=== PATIENT | female | born 1950 | race Caucasian/White ===

== ENCOUNTER 2019-01-25 16:04 | Inpatient (IN) ==
[2019-01-25] MEDS ORDERED: NS 1,000 ML IV ONE ×4 (16:29→17:42)
[2019-01-25] MEDS ORDERED: DUONEB (A & A) INH ONE (16:29)
--- NOTE | 2019-01-25 16:46 | Diag Imaging Result Doc PS360 ---
EXAM: CT HEAD W/O CONTRAST 01/25/2019 HISTORY: AMS TECHNIQUE: This exam was performed using automated exposure control, adjustment of mA or kV according to patient size, and/or use of iterative reconstruction technique. COMMENT: There are calcifications in the vertebral and internal carotid arteries. There is hypodensity in the left occipital cortex and subcortical white matter. There is periventricular white matter lucency in the frontal lobes bilaterally and lucency present in the anterior portion of the external capsule on the left. There is a small lacune in the right caudate nucleus. There is no evidence of bleed mass effect or abnormal extra-axial fluid collection. The calvarium is intact. The visualized paranasal sinuses are clear. There are no previous studies. IMPRESSION: Chronic ischemic microvascular changes. The possibility of a subacute infarction in the left occipital lobe cannot be excluded. Electronically signed by Alberto Gar 01/25/2019 4:44 PM
--- NOTE | 2019-01-25 16:47 | Diag Imaging Result Doc PS360 ---
EXAM: CHEST-PORTABLE 01/25/2019 HISTORY: AMS TECHNIQUE: AP portable at 1644 COMMENT: There is some ill-defined opacity partially obscuring the left hemidiaphragm. This was not present on 11/08/2012. IMPRESSION: Left lower lobe bronchopneumonia. Electronically signed by Alberto Gar 01/25/2019 4:45 PM
[2019-01-25 17:24] LABS: ALLEN TEST NO; BE -7.7 mmoll (-3.0-3.0); BLOOD TYPE ARTERIAL; HCO3-(ACT) 18.8 mmoll (20.0-26.0); METHB 0.8 % (0.0-1.5); O2HB 92.8 % (95.0-99.0); PCO2(98.6) 29 mmHg (35-45); PO2(98.6) 67 mmHg (60-100); SAMPLE BLOOD; SAO2 97.9 % (95.0-100.0); THB 13.8 g/dL (11.5-17.4); pH(98.6) 7.36 (7.35-7.45)
[2019-01-25 17:28] LABS: MODALITY ROOM AIR
[2019-01-25] MEDS ORDERED: HUMULIN R IV ONE ×2 (17:40→18:49)
[2019-01-25] MEDS ORDERED: LEVAQUIN 750 MG/D5W 750 MG/150 ML IVPB IV ONE (17:40)
[2019-01-25] MEDS ORDERED: VANCOMYCIN 1 GM/NS 1 GM/250 ML IVPB IV ONE (17:40)
[2019-01-25 17:41] LABS: BASO# 0.03 X1000 (0.0-0.2); BASO% 0.2 % (0.0-0.8); EOS# 0.17 X1000 (0.0-0.7); EOS% 1.3 % (0.0-10.0); HEMATOCRIT 41.3 % (37.0-47.0); HEMOGLOBIN 13.9 g/dL (12.0-16.0); IMM GRAN# 0.05 X1000 (0.0-0.04); IMM GRAN% 0.4 % (0.0-0.5); LYMPH# 1.79 X1000 (1.2-3.4); LYMPH% 14.1 % (20.5-51.1); MCHC 33.7 g/dL (33-37); MONO# 0.69 X1000 (0.11-0.59); MONO% 5.4 % (1.7-9.3); MPV 10.4 FL (7.4-10.4); NEUT# 9.97 X1000 (1.4-6.5); NEUT% 78.6 % (42.2-75.2); PLT 431 X1000 (130-400); RDW 13.1 % (11.5-14.5)
--- NOTE | 2019-01-25 18:35 | PROVIDER DOCUMENTATION ---
This chart was entered by Casi Mcknight Scribe, acting as scribe for Logan Rodriguez MD. HPI-General Adult - General Chief Complaint: Altered Mental Status Stated Complaint: CANT SEE Time Seen by Provider: 01/25/19 16:12 Source: patient, family Allergies/Adverse Reactions: Patient Allergies Allergy/AdvReac Type Severity Reaction Status Date / Time acetaminophen [From Ultracet] Allergy Unknown Verified 04/15/12 20:41 azithromycin Allergy Unknown Verified 04/15/12 20:41 cephalexin monohydrate * Allergy HIVES Verified 04/15/12 20:41 [From Keflex] ketorolac tromethamine * Allergy Unknown Verified 04/15/12 20:41 [From Toradol] methylprednisolone Allergy WATERY EYES Verified 04/15/12 20:41 [From Medrol] nalbuphine HCl * Allergy ANAPHYLAXIS Verified 04/15/12 20:41 [From Nubain] Penicillins Allergy RASH Verified 04/15/12 20:41 Sulfa (Sulfonamide Allergy ITCHING Verified 04/15/12 20:41 Antibiotics) tramadol HCl * Allergy Unknown Verified 04/15/12 20:41 [From Ultracet] Home Medications: Home Medication List Medication Instructions Recorded Confirmed Last Taken Type Alprazolam [Alprazolam Xr] 2 mg PO 4XDAY PRN PRN 04/15/12 04/15/12 Unknown History Atorvastatin Calcium [Lipitor] 80 mg PO DAILY 04/15/12 04/15/12 Unknown History Carisoprodol [Soma] 350 mg PO BID 04/15/12 04/15/12 Unknown History Doxycycline [Vibramycin] 100 mg PO BID 04/15/12 04/15/12 Unknown History Esomeprazole Magnesium [Nexium] 40 mg PO DAILY 04/15/12 04/15/12 Unknown History Folic Acid 1 mg PO DAILY 04/15/12 04/15/12 Unknown History Hydrocodone/Acetaminophen [Lortab 1 each PO Q4H PRN PRN 04/15/12 04/15/12 Unknown History 10-500 Tablet] Lisinopril [Zestril] 2.5 mg PO 04/15/12 04/15/12 Unknown History Temazepam 30 mg PO DAILY 04/15/12 04/15/12 Unknown History Tolterodine L.a. [Detrol LA] 2 mg PO DAILY 04/15/12 04/15/12 Unknown History Topiramate [Topamax] 50 mg PO BID 04/15/12 04/15/12 Unknown History Warfarin [Coumadin] 10 mg PO QHS 04/15/12 04/15/12 Unknown History Clindamycin [Cleocin] 150 mg PO Q8H #42 capsule 04/18/12 Unknown Rx - History of Present Illness -Gen Adult Nature of Presenting Problems: pt is a 68 yr old female presenting with daughter. pt reports approx 1430 this afternoon she began having trouble seeing, weak, dizzy and confused. pt also admits pain all over, hx of chronic pain. pt has been incontinent today Location of Pain/Injury: reports: generalized Pain Radiation: reports: no radiation Quality of Pain: reports: aching Severity: reports: moderate Onset/Duration: reports: abrupt (1430) Timing: reports: still present Context/Activities at Onset: reports: light activity Modifying Factors: improves with: nothing Associated Symptoms: reports: dizziness, genitourinary problems, muscle aches, shortness of breath, weakness, trouble walking. denies: fever/chills Similar Symptoms Previously?: No Recently seen or treated by another doctor?: No Review of Systems - Adult - REVIEW OF SYSTEMS - ADULT Constitutional: reports: fatique. denies: chills, fever Eyes: reports: decreased vision. denies: blurred vision, double vision Ears, Nose, Mouth & Throat: denies: ear pain, sinus problem, throat pain Cardiovascular: reports: chest pain. denies: palpitations, syncope Respiratory: reports: shortness of breath (chronic). denies: cough Gastrointestinal: reports: abdominal pain. denies: diarrhea, nausea, vomiting Genitourinary: reports: incontinence. denies: dysuria, frequency Musculoskeletal: reports: muscle aches, muscle weakness Integumentary: reports: no symptoms reported Neurological: reports: dizziness/vertigo. denies: headache/migraines, numbness, slurred speech, syncope Psychiatric: reports: no symptoms reported Endocrine: reports: no symptoms reported Hematologic/Lymphatic: reports: no symptoms reported Allergic/Immunologic: reports: no symptoms reported All Other Systems: Reviewed and Negative Past History - Adult - PAST MEDICAL HISTORY-ADULT Review of Records: reports: Nursing Assessment Review, Medications Reviewed, Social history reviewed & non-contributory. Major Childhood Illnesses: reports: denies history Cardiovascular: reports: denies history Respiratory: reports: denies history Gastrointestinal: reports: denies history Obstetrical/Gynecological: reports: denies history Genitourinary: reports: denies history Musculoskeletal: reports: denies history Neurological: reports: denies history Endocrine/Immune: reports: denies history Other Conditions: reports: denies history - IMMUNIZATION STATUS Childhood Immunizations: See Nurse Assessment Flu Vaccine: See Nurse Assessment - FAMILY HISTORY Family History: reviewed, not pertinent - SOCIAL HISTORY Smoking: cigarettes Provider spent 3-5 mins advising pt. on dangers of tobacco.: Discussed manners to quit use, and f/u contacts for add'l counseling. Substance Use: denies Physical Exam-General - PHYSICAL EXAM-ADULT Initial Vital Signs Reviewed: Yes - CONSTITUTIONAL General Appearance: appears well, alert, no apparent distress, obese - EYES Eyes: PERRL/EOMI - HEAD, EARS, NOSE, MOUTH & THROAT HENMT: normocephalic/atraumatic, other (dry oral mucosa) - NECK Neck: non-tender, full range of motion, supple, normal inspection - RESPIRATORY Respiratory: chest non-tender, rhonchi (rare), increased rate, other (distant breath sounds) - CARDIOVASCULAR Cardiovascular: normal peripheral pulses, regular rate, rhythm, systolic murmur (2/6 at apex) - CHEST (BREASTS) Chest/Breast: other (small area of erythema to right breast above nipple) - GASTROINTESTINAL (ABDOMEN) Abdominal Exam: normal bowel sounds, soft, tenderness (RUQ), hernia (multiple small ventral hernias) - LYMPHATIC Lymphatic: no adenopathy - MUSCULOSKELETAL Extremity: slow capillary refill, other (LAKA-well healed stump.). negative: calf tenderness - SKIN Integumentary: normal color, normal turgor, warm/dry, other (dry urine down right leg/foot) - NEUROLOGIC Neurologic: grossly normal, no motor/sensory deficits - PSYCHIATRIC Psych/Mental Status: normal mood/affect, normal thought content, normal thought process, oriented x 3 Progress - PLAN OF CARE/RESULTS Progress/Plan/Lab Results: Vital Signs - 8 hr 01/25/19 16:06 Temperature 98.0 F Pulse Rate 96 H Respiratory Rate 18 Blood Pressure 150/78 O2 Sat by Pulse Oximetry 99 Orders Category Date Time Status Cardiac Monitoring DIRECTED Care 01/25/19 16:26 Active Finger Stick Blood Sugar (ED) DIRECTED Care 01/25/19 16:26 Active Oxygen Therapy- ED Nursing DIRECTED Care 01/25/19 16:26 Active Saline Loc NOW Care 01/25/19 16:26 Active CHEST-PORTABLE [RAD] Stat Exams 01/25/19 16:[address] HEAD W/O CONTRAST [CT] Stat Exams 01/25/19 16:27 Ordered ABG [RESP] Routine Lab 01/25/19 16:26 Ordered ALCOHOL BLOOD Stat Lab 01/25/19 16:26 Uncollected CBC WITH ELECTRONIC DIFF [HEME] Stat Lab 01/25/19 16:26 Uncollected CK PROFILE [SP CHEM] Stat Lab 01/25/19 16:26 Uncollected COMPREHENSIVE METABOLIC PANEL [CHEM] Stat Lab 01/25/19 16:26 Uncollected LACTATE, PLASMA [CHEM] Stat Lab 01/25/19 16:26 Uncollected PROTIME WITH INR [COAG] Stat Lab 01/25/19 16:26 Uncollected PTT [COAG] Stat Lab 01/25/19 16:26 Uncollected TROPONIN T Stat Lab 01/25/19 16:26 Uncollected URINALYSIS [URINALYSIS] Stat Lab 01/25/19 16:26 Uncollected URINE DRUG SCREEN Stat Lab 01/25/19 16:27 Uncollected 0.9% Sodium Chloride Inj [Ns] 1,000 ml Med 01/25/19 16:29 Active IV 999 mls/hr Albuterol 2.5MG/Ipratrop 0.5MG [Duoneb (A & A)] Med 01/25/19 16:29 Discontinued 3 ml INH NOW ONE Aerosol Treatments Routine Oth 01/25/19 16:30 Active Aerosol Treatments Stat Oth 01/25/19 16:30 Active Altered Mental Status Stat Oth 01/25/19 16:26 Ordered EKG [EKG] Stat Ther 01/25/19 16:26 Ordered Result Diagrams: 01/25/19 17:22 - REASSESSMENT Reassessment #1 Time Reassessed: 18:01 Status: improving (Given 30ml/kg bolus of NS for severe sepsis since lactate was greater than 4. Given IV levaquin and vanco for PNE, since she is allergic to cephalexin and azithtomycin. Given IV insulin for hyperglycemia. There is no acidosis. She will also need MRI work-up for possible subacute CVA on CT scan.) - XRAY 1 XRAY Study: Chest Impression: Abnormal ( EXAM: CHEST-PORTABLE 01/25/2019 HISTORY: AMS TECHNIQUE: AP portable at 1644 COMMENT: There is some ill-defined opacity partially obscuring the left hemidiaphragm. This was not present on 11/08/2012. IMPRESSION: Left lower lobe bronchopneumonia. Electronically signed by Alberto Gar 01/25/2019 4:45 PM 01/25/19 1645 Interpreting Physician: Alberto Gar MD Dictated Date/Time: 01/25/19 1644 cc: Logan Rodriguez MD; Celestina Connelly) Comparison with other Films: changes noted (11/08/12) - CT/MRI 1 CT Study: Head Impression: Abnormal (Signed EXAM: CT HEAD W/O CONTRAST 01/25/2019 HISTORY: AMS TECHNIQUE: This exam was performed using automated exposure control, adjustment of mA or kV according to patient size, and/or use of iterative reconstruction technique. COMMENT: There are calcifications in the vertebral and internal carotid arteries. There is hypodensity in the left occipital cortex and subcortical white matter. There is periventricular white matter lucency in the frontal lobes bilaterally and lucency present in the anterior portion of the external capsule on the left. There is a small lacune in the right caudate nucleus. There is no evidence of bleed mass effect or abnormal extra-axial fluid collection. The calvarium is intact. The visualized paranasal sinuses are clear. There are no previous studies. IMPRESSION: Chronic ischemic microvascular changes. The possibility of a subacute infarction in the left occipital lobe cannot be excluded. Electronically signed by Alberto Gar 01/25/2019 4:44 PM 01/25/19 1644 Interpreting Physician: Alberto Gar MD Dictated Date/Time: 01/25/19 1642 cc: Logan Rodriguez MD; Celestina Connelly) Departure - Departure Date of Disposition Decision: 01/25/19 Time of Disposition Decision: 18:03 DIAGNOSIS: Severe sepsis with acute organ dysfunction, Cerebrovascular accident (CVA) due to embolic occlusion of left posterior cerebral artery, Uncontrolled type 2 diabetes mellitus with hyperglycemia LLL pneumonia Qualifiers: Pneumonia type: due to unspecified organism Qualified Code(s): J18.1 - Lobar pneumonia, unspecified organism Disposition: ADMITTED INPATIENT 09 Certified Medical Emergency: Emergent Condition: Serious Referrals and Follow-Ups: Celestina Connelly CRNP [Primary Care Provider] - - Critical Care Note This patient required my direct & personal management of CC.: Yes Total Time (mins): 50 (metabolic/renal/resp compromise ) Critical Care Statement: This patient required my direct personal management to treat or rule out processes, the absence of which, could potentiallly result in sudden, clinically significant life or limb threatening deterioration. Attestation - Physician/ ROBE Attestation Patient care was provided by Advanced Practice Provider:: No The physician spent face to face time with patient:: Yes Advanced Practice Provider documentation review:: Supervising physician onsite and consulted in the evaluation and care of this patient. The physician did have a face to face encounter with the patient. This chart was documented by the indicated scribe, (Casi Mcknight Scribe) and accurately reflects the services I performed and decisions made by me, Logan Rodriguez MD, as attested by the provider's signature.
[2019-01-25 18:38] LABS: ALB/GLOB RATIO 0.9; ALBUMIN 3.2 g/dL (3.5-5.0); CREATININE 1.2 mg/dL (0.5-0.9); POTASSIUM 4.5 mmol/L (3.5-5.1); TOTAL BILIRUBIN 0.36 mg/dL (0.20-1.00); TOTAL PROTEIN 6.6 g/dL (6.3-8.3)
[2019-01-25 18:42] LABS: URINE SOURCE CATH
[2019-01-25 18:46] LABS: BILIRUBIN URINE NEGATIVE (NEGATIVE); BLOOD URINE SMALL (NEGATIVE); COLOR ORANGE; GLUCOSE URINE >1000 mg/dL (NEGATIVE); KETONE URINE NEGATIVE (NEGATIVE); LEUKOCYTES URINE LARGE (NEGATIVE); NITRITE URINE POSITIVE (NEGATIVE); PROTEIN URINE TRACE mg/dL (NEGATIVE); SP GRAVITY URINE 1.029; TURBIDITY URINE TURBID (CLEAR); UROBILINOGEN URINE NORMAL (NORMAL)
[2019-01-25 18:48] LABS: UR EPITHELIAL CELLS <10 /HPF (<10); URINE BACTERIA 4+ /HPF; URINE RBC TNTC /HPF (<10); URINE WBC TNTC /HPF (<10)
[2019-01-25] MEDS ORDERED: DIFLUCAN 400 MG/NS 400 MG/200 ML IVPB IV ONE (18:49)
[2019-01-25] MEDS ORDERED: POTASSIUM CHLORIDE 20% LIQUID PO PRN (18:58)
[2019-01-25] MEDS ORDERED: SODIUM BICARBONATE 8.4% 100 MEQ in STERILE WATER INJ. 500 ML IV PRN (18:58)
[2019-01-25] MEDS ORDERED: D50W SYRINGE IV PRN (18:58)
[2019-01-25] MEDS ORDERED: SODIUM PHOSPHATE 30 MMOL in D5W 250 ML IV PRN (18:58)
[2019-01-25] MEDS ORDERED: POTASSIUM CHLORIDE 40 MEQ/SWI 40 MEQ/100 ML IVPB IV PRN (18:58)
[2019-01-25] MEDS ORDERED: ZOFRAN IV PRN (18:58)
[2019-01-25] MEDS ORDERED: POTASSIUM CHLORIDE 20 MEQ/SWI 20 MEQ/100 ML IVPB IV PRN (18:58)
[2019-01-25] MEDS ORDERED: HUMULIN R 100 UNIT in NS 100 ML IV SCH (19:00)
[2019-01-25] MEDS ORDERED: ALPRAZOLAM 2 MG PO PRN (19:05)
[2019-01-25 19:12] LABS: URINE CASTS NONE SEEN; URINE CRYSTALS NONE SEEN; URINE YEAST PRESENT
[2019-01-25 19:14] LABS: UR AMPHETAMINES QUAL NONE DETECTED (NONE DETECT); UR BARBITUATES QUAL NONE DETECTED (NONE DETECT); UR BENZODIAZEPIN QUAL NONE DETECTED (NONE DETECT); UR CANNABINOIDS QUAL NONE DETECTED (NONE DETECT); UR COCAINE QUAL NONE DETECTED (NONE DETECT); UR METHADONE QUAL NONE DETECTED (NONE DETECT); UR OPIATES QUAL NONE DETECTED (NONE DETECT); UR OXYCODONE QUAL PRESUMPTIVE POSITIVE (NONE DETECT); UR PCP QUAL NONE DETECTED (NONE DETECT)
--- NOTE | 2019-01-25 19:52 | HISTORY AND PHYSICAL ---
HISTORY OF PRESENT ILLNESS: Ms. Lan is a 68-year-old. She showed up in the emergency room. Apparently, her friend brought her. She lives in [place] with a friend. She says she has really been confined to the bed, has not got up, and she has not been checking her sugars. She just had felt really bad. She is asking for something for pain. It is hard for her to localize the pain. She just feels bad in general. She has not been eating or drinking much, she says for the last couple of days. She cannot give me much of a history. She is so focused on the fact that she is thirsty and uncomfortable, but she has a left [id number] amputation. I am assuming that is for peripheral vascular disease and diabetic foot ulcer. She has diabetes mellitus type 2 and her sugars were almost 800. Her bicarbonate is 18, so she has a mild acidosis, but I think it is predominantly hyperglycemic hyperosmolar state, and she is a little bit intravascularly dry. We are going to give her an insulin drip and give her some fluids. We also noted she has a left lower lobe pneumonia. She has extensive fungal dermatitis around the perineal area and underneath her abdominal folds. OTHER PAST HISTORY: She has nothing in the old records. Based on her medications, she has been treated for anxiety, chronic pain, muscle pain with Soma. Apparently, she has been on Nexium. They are treating her for blood pressure. She has been on Coumadin, takes 10 mg at bedtime, so we need to make sure we check ProTime. REVIEW OF SYSTEMS: Not able to give me much. She just says she feels bad in general, not been able to ambulate, not eating in the last couple of days. She does not report any fever or chills. She has not checked her sugars. Not sure if she is taking her medication.HEENT: She does not complain of any change in visual or hearing acuity. Respiratory: No complaints of shortness of breath. No complaints of chest pain or palpitations. No abdominal pain. No gross hematuria or dysuria that she admits to. Endocrinologic/hematologic: Diabetes. I do not know of any other history. I am not sure of the reason for her Coumadin. I do not know if she has had a history of DVT in the past or she has had a history of atrial fibrillation. We will put her on a monitor. PHYSICAL EXAMINATION: GENERAL: Well-developed, well-nourished, white female. She is awake and she is oriented. She knows she is at the hospital. She knows that month it is, but hard for her to keep on track as far as questions and very uncomfortable. VITAL SIGNS: Temperature 98.0 degrees, pulse 100, respirations 34, blood pressure 161/104. HEENT: Pupils are equal and round. CVP less than 6 cm. LUNGS: Clear in all lung rodarte anterior and lateral. CARDIOVASCULAR: Regular rhythm and rate without murmur or S3. ABDOMEN: Soft. SKIN: Warm and dry. She has an extensive fungal rash, erythema, with satellite lesions around the perineal area, around her genitalia, and under the stomach folds. No oral or nasal mucosa lesions. NECK: Supple. LABORATORY AND DIAGNOSTIC DATA: White count 12,700, hematocrit 41, platelet count 431,000. Sodium 123, potassium 4.5, chloride 86, bicarbonate 18, BUN 17, creatinine 1.2, blood sugar 767. AST 7, ALT is 10, alkaline phosphatase 119. Troponin is less than 0.01. Albumin 3.2. ProTime was canceled, I am not sure why. Urinalysis: Qty-jlvokbam-as-count white blood cells, too- jvdxzjvz-rj-ynlcs red blood cells, 4+ bacteria. Her blood gas does not reveal significant acidosis, pH is 7.36, pCO2 is 29, PO2 is 67, O2 saturation is 97%, lactate level is 4.50. Chest x- ray: Left lower lobe bronchopneumonia, infiltrate. Head CT: Chronic ischemia, microvascular changes, possibility of subacute infarction in the left occipital cannot be excluded. ASSESSMENT AND PLAN: 1. Hyperosmolar hyperglycemic state. No significant acidosis, but will treat with IV insulin, bring her sugars down below 200, and then put her on a sliding scale. 2. She has left lower lobe pneumonia. We are also going to need to treat her for a urinary tract as she has a good deal of sediment. She is allergic to azithromycin, cephalexin, acetaminophen apparently, so we will treat her with Levaquin single agent at this time. That should cover for pneumococcus and also cover for gram-negative in the urine. 3. Fungal dermatitis. We are going to put nystatin powder on her abdominal folds twice a day, try and keep that area dry and clean. She has a Becerra catheter in. 4. Morbid obesity. 5. Peripheral vascular disease. 6. Diabetes mellitus type 2. As above. 7. She is on Coumadin, not sure of the reason why. 8. It appears she has been treated for depression and anxiety, and appears she may have had some hyperactive bladder as well. She is on Detrol LA. We will continue the Detrol LA. We will continue the Topamax. We are going to hold the Coumadin now, until we find out what her ProTime is. We will hold her doxycycline and clindamycin. We will let her have the Soma if she needs it, 350 mg twice a day. We will continue Lipitor 80 mg a day, and let her have her alprazolam 2 mg p.o. 4 times a day p.r.n., folic acid 1 mg a day, lisinopril 2.5 mg daily, temazepam will continue at 30 mg p.o. at bedtime, Detrol LA 2 mg p.o. daily, Topamax 50 mg b.i.d. cc: Oseas Lamar MD
[2019-01-25] MEDS ORDERED: SOMA PO SCH (21:00)
[2019-01-25] MEDS ORDERED: TOPAMAX PO SCH (21:00)
[2019-01-25 21:21] LABS: INR 1.14; PROTIME 14.8 Seconds (11.0-16.0); PTT 26.3 Seconds (22.3-41.8)
[2019-01-25 21:36] LABS: HEMOGLOBIN A1C 12.4 % (4.8-6.0)
--- NOTE | 2019-01-25 21:56 | EKG Report ---
Test Performed on : 01/25/2019 8:20:29 PM Test Reason : AMS Blood Pressure : / mmHG Vent. Rate : 091 BPM Atrial Rate : 091 BPM P-R Int : 158 ms QRS Dur : 076 ms QT Int : 362 ms P-R-T Axes : 078 -53 092 degrees QTc Int : 445 ms Sinus rhythm. with premature atrial complexes. Left axis deviation Possible Anterior infarct , age undetermined Abnormal ECG No previous ECGs available Unconfirmed Result
[2019-01-25 21:59] LABS: CALCIUM 9.1 mg/dL (8.8-10.2); CREATININE 1.1 mg/dL (0.5-0.9); MAGNESIUM 1.3 mg/dL (1.5-2.7); PHOSPHORUS 2.9 mg/dL (2.7-4.5); POTASSIUM 3.7 mmol/L (3.5-5.1)
--- NOTE | 2019-01-25 23:08 | ED EKG INTERP ---
This chart was entered by Casi Mcknight Scribe, acting as scribe for Serg Matt MD. EKG Interpretation - EKG Time of EKG reading by physician:: 20:20 EKG Read and Signed by:: Serg Matt EKG Interpretation (*Must complete 3 of following elements*): Abnormal (poss anterior infarct-age undetermined) Rate: 91 Rhythm: sinus with PACs Marlin: left Attestation - Physician/ ROBE Attestation Patient care was provided by Advanced Practice Provider:: No The physician spent face to face time with patient:: Yes Advanced Practice Provider documentation review:: Supervising physician onsite and consulted in the evaluation and care of this patient. The physician did have a face to face encounter with the patient. This chart was documented by the indicated scribe, (Casi Mcknight, Arlette) and accurately reflects the services I performed and decisions made by me, Serg Matt MD, as attested by the provider's signature.
[2019-01-26 00:24] LABS: CALCIUM 8.9 mg/dL (8.8-10.2); MAGNESIUM 1.3 mg/dL (1.5-2.7); PHOSPHORUS 2.6 mg/dL (2.7-4.5); POTASSIUM 4.1 mmol/L (3.5-5.1)
[2019-01-26] MEDS: LIPITOR PO SCH ×3 (00:41→21:00)
[2019-01-26] MEDS: MYCOSTATIN POWDER TOP SCH ×3 (00:56→21:00)
[2019-01-26] MEDS: NS 1,000 ML IV SCH ×3 (02:09→16:06)
[2019-01-26] MEDS: POTASSIUM CHLORIDE 10% LIQUID PO PRN ×2 (02:13→08:59)
[2019-01-26] MEDS: MAGNESIUM SULFATE 2 GM/S.W.I. 2 GM/50 ML IVPB IV PRN ×2 (03:00→10:00)
[2019-01-26 03:36] LABS: INR 1.28; PROTIME 16.2 Seconds (11.0-16.0)
[2019-01-26 04:31] LABS: RDW 12.8 % (11.5-14.5)
[2019-01-26 04:32] LABS: BASO# 0.03 X1000 (0.0-0.2); BASO% 0.2 % (0.0-0.8); EOS# 0.11 X1000 (0.0-0.7); EOS% 0.9 % (0.0-10.0); HEMATOCRIT 33.8 % (37.0-47.0); HEMOGLOBIN 11.3 g/dL (12.0-16.0); IMM GRAN# 0.04 X1000 (0.0-0.04); IMM GRAN% 0.3 % (0.0-0.5); LYMPH# 2.73 X1000 (1.2-3.4); LYMPH% 22.7 % (20.5-51.1); MCH 28.9 PG (27-31); MCHC 33.4 g/dL (33-37); MCV 86.4 FL (81-99); MONO# 1.03 X1000 (0.11-0.59); MONO% 8.6 % (1.7-9.3); MPV 9.9 FL (7.4-10.4); NEUT% 67.3 % (42.2-75.2); PLT 330 X1000 (130-400); RBC 3.91 XMIL (4.2-5.4); WBC 12.04 X1000 (4.8-10.8)
[2019-01-26] MEDS: D5 NS 1,000 ML IV PRN (08:04)
[2019-01-26 08:22] LABS: AGAP 12; ALB/GLOB RATIO 0.9; ALBUMIN 2.3 g/dL (3.5-5.0); BUN 12 mg/dL (8-22); CALCIUM 7.6 mg/dL (8.8-10.2); CHLORIDE 104 mmol/L (98-107); COSMO 270; CREATININE 0.7 mg/dL (0.5-0.9); DIRECT BILIRUBIN 0.1 mg/dL (0.00-0.20); ESTIMATED GFR > 60; GLUCOSE 140 mg/dL (70-104); MAGNESIUM 1.6 mg/dL (1.5-2.7); PHOSPHORUS 2.4 mg/dL (2.7-4.5); POTASSIUM 3.8 mmol/L (3.5-5.1); SODIUM 134 mmol/L (136-145); TCO2 18 mmol/L (25-35); TOTAL BILIRUBIN 0.31 mg/dL (0.20-1.00); TOTAL PROTEIN 4.8 g/dL (6.3-8.3)
[2019-01-26] MEDS: PRINIVIL PO SCH (08:57)
[2019-01-26] MEDS: DETROL LA PO SCH (08:57)
[2019-01-26] MEDS: PRILOSEC PO SCH (08:57)
[2019-01-26] MEDS: DIFLUCAN PO SCH (08:58)
[2019-01-26] MEDS: FOLIC ACID PO SCH (08:58)
[2019-01-26] MEDS ORDERED: TEMAZEPAM 30 MG PO SCH (09:00)
--- NOTE | 2019-01-26 10:47 | PROGRESS NOTE ---
DATE: 01/26/2019 SUBJECTIVE: Ms. Lan was sleeping. She was easy to arouse. She does feel better. OBJECTIVE: Vital Signs: Remains afebrile, temperature 98.2 degrees, pulse 66, respirations 20, blood pressure 147/66. HEENT: Pupils are equal and round. Lungs: Clear in all lung rodarte. Cardiovascular: Regular rhythm and rate without murmur or S3. Abdomen: Soft. Skin: Warm and dry. Urine output is over about 11,000 mL. LABORATORY DATA: This morning, white count 12,040, hematocrit is 33, platelet count 333,000. Sodium 134, potassium 3.8, chloride 104, blood sugars have come down to between 100 and 200. ASSESSMENT AND PLAN: 1. Hyperglycemic hyperosmolar state with mild acidosis, improved with intravenous insulin, and now on sliding scale. I have her on a diabetic diet. 2. Fungal dermatosis, extensive, in the perineal area. Continue nystatin and powder, and have her on Diflucan. 3. History of peripheral vascular disease. 4. Morbid obesity. 5. She was on Coumadin, and I am not sure what for, but holding the Coumadin at this time. ProTime is 16.2. She was on 10 mg of Coumadin at bedtime, so continue current medications. cc: Oseas Lamar MD
[2019-01-26] MEDS: HUMULIN R SUBQ SCH ×3 (11:43→20:59)
[2019-01-26] MEDS: NORCO-10 PO PRN ×3 (12:58→21:36)
--- NOTE | 2019-01-26 13:48 | ECHO REPORT ---
ORDER DATE: 01/26/2019 INTERPRETING PHYSICIAN: Dr. Jeyson Gary. ECHOCARDIOGRAPHIC MEASUREMENTS: 1. Interventricular septum: 1.1 cm. 2. Left ventricular posterior wall: 1.1 cm. 3. Diastolic diameter: 5.3 cm. 4. Left atrium: 4.8 cm. 5. Aorta: 3.3 cm. SUMMARY OF THE 2-DIMENSIONAL IMAGIN. Normal left ventricular cavity size. Estimated ejection fraction of 60%. 2. There is moderate biatrial enlargement. 3. Aortic valve leaflets are trileaflet. They are sclerosed. 4. Mitral valve leaflets were mildly thickened. There is moderate mitral annular calcification. 5. Tricuspid valve was normal. 6. Pulmonic valve was normal. 7. Peak velocity across the aortic valve was 3.3 m/sec with a peak gradient of 43 mmHg, mean gradient of 26 mmHg. There is moderate aortic stenosis with a valve area of 1.2 square cm, associated with trace aortic regurgitation. 8. There is mild mitral regurgitation. 9. Mild tricuspid regurgitation. 10. Peak velocity across the tricuspid valve was 2.1 m/sec. 11. Pulmonary artery systolic pressure of 29 mmHg. 12. There is significant calcification of the posterior mitral valve leaflet as well. 13. There is no pericardial effusion or obvious intracardiac mass or thrombus seen. cc: MD Michelle Valles CRNP
[2019-01-26] MEDS: LEVAQUIN 750 MG/D5W 750 MG/150 ML IVPB IV SCH (16:49)
[2019-01-26] MEDS ORDERED: DIFLUCAN 400 MG/NS 400 MG/200 ML IVPB IV SCH (18:00)
--- NOTE | 2019-01-26 21:59 | Carotid Study ---
DATE: 01/26/2019 REFERRING PHYSICIAN: BEAR Goldman READING PHYSICIAN: Marty Schulte MD COMPUTER SYSTEMS DESIGN ANALYST: Chance INDICATION: Stroke. FINDINGS: There is irregular calcific plaque beginning in the carotid bulbs bilaterally extending into the mid internal carotid arteries. This does produce turbulent flow and elevated velocities bilaterally. The left side is worse than the right. Percent stenosis is 60% to 79% bilaterally, and there is antegrade vertebral flow bilaterally. INTERPRETATION: Severe carotid stenosis bilaterally as described above. This is approaching hemodynamic significance. cc: MD Michelle Horton CRNP
[2019-01-27] MEDS: D5 NS 1,000 ML IV PRN (02:44)
[2019-01-27] MEDS: NS 1,000 ML IV SCH ×2 (03:03→16:37)
[2019-01-27] MEDS: NORCO-10 PO PRN ×5 (03:37→20:38)
[2019-01-27 06:00] LABS: HEMATOCRIT 33.2 % (37.0-47.0); MCH 29.2 PG (27-31); MCV 88.1 FL (81-99); RBC 3.77 XMIL (4.2-5.4); WBC 9.71 X1000 (4.8-10.8)
[2019-01-27 06:01] LABS: BASO# 0.02 X1000 (0.0-0.2); BASO% 0.2 % (0.0-0.8); EOS% 2.1 % (0.0-10.0); IMM GRAN# 0.05 X1000 (0.0-0.04); IMM GRAN% 0.5 % (0.0-0.5); LYMPH# 2.14 X1000 (1.2-3.4); MCHC 33.1 g/dL (33-37); MONO# 0.61 X1000 (0.11-0.59); MONO% 6.3 % (1.7-9.3); MPV 9.9 FL (7.4-10.4); NEUT# 6.69 X1000 (1.4-6.5); NEUT% 68.9 % (42.2-75.2); PLT 308 X1000 (130-400); RDW 13.2 % (11.5-14.5)
[2019-01-27 06:06] LABS: INR 1.22; PROTIME 15.6 Seconds (11.0-16.0)
[2019-01-27 06:28] LABS: AGAP 11; ALB/GLOB RATIO 0.7; ALBUMIN 2.3 g/dL (3.5-5.0); ALKALINE PHOSPHATASE 74 U/L (32-104); BUN 10 mg/dL (8-22); CALCIUM 8.6 mg/dL (8.8-10.2); CHLORIDE 105 mmol/L (98-107); COSMO 271; CREATININE 0.6 mg/dL (0.5-0.9); ESTIMATED GFR > 60; GLUCOSE 204 mg/dL (70-104); GOT 6 U/L (10-30); GPT 5 U/L (10-36); POTASSIUM 4.5 mmol/L (3.5-5.1); SODIUM 133 mmol/L (136-145); TCO2 17 mmol/L (25-35); TOTAL BILIRUBIN 0.31 mg/dL (0.20-1.00); TOTAL PROTEIN 5.8 g/dL (6.3-8.3)
[2019-01-27] MEDS: HUMULIN R SUBQ SCH ×4 (06:39→20:39)
[2019-01-27] MEDS: PRINIVIL PO SCH (08:02)
[2019-01-27] MEDS: PRILOSEC PO SCH (08:02)
[2019-01-27] MEDS: FOLIC ACID PO SCH (08:03)
[2019-01-27] MEDS: DETROL LA PO SCH (08:03)
[2019-01-27] MEDS: DIFLUCAN PO SCH (08:03)
[2019-01-27] MEDS: MYCOSTATIN POWDER TOP SCH ×2 (08:03→20:42)
--- NOTE | 2019-01-27 10:26 | PROGRESS NOTE ---
DATE: 01/27/2019 SUBJECTIVE: Ms. Lan feels much better. The rash is markedly improved around her perennial area. Blood sugars have come down nicely. She remains afebrile. OBJECTIVE: Vital Signs: Temperature 97.7 degrees, pulse 53, respirations 16, blood pressure 155/85. Eyes: Pupils are equal and round. Lungs: Clear in all lung rodarte. Cardiovascular exam: Regular rhythm and rate without murmur or S3. Abdomen: Soft. Skin: Skin is warm and dry. ASSESSMENT AND PLAN: 1. Hyperglycemic hyperosmolar state. Blood sugars have come down nicely. Last 4 numbers 238, 238, 204 and 225. She started off with an insulin drip. She is now on subcutaneous sliding scale. 2. Fungal dermatosis in the perineal area and that is better. Continue topical nystatin and oral Diflucan. 3. History of peripheral vascular disease. 4. Morbid obesity. 5. She was on Coumadin. Her pro time was about 16.2. I am going to leave her off the Coumadin for now. 6. Left wjzwi-inq-mxme amputation. I have reviewed all of her orders. We will ask physical therapy and occupational therapy to help her. Suspect she will need to stay here another 48 hours. Get sugars under good control. Reinstitute her insulin. cc: Oseas Lamar MD
[2019-01-27] MEDS: LEVAQUIN 750 MG/D5W 750 MG/150 ML IVPB IV SCH (16:37)
[2019-01-27] MEDS: LIPITOR PO SCH (20:38)
[2019-01-28] MEDS: NORCO-10 PO PRN ×6 (00:26→20:42)
[2019-01-28 05:41] LABS: BASO# 0.02 X1000 (0.0-0.2); BASO% 0.2 % (0.0-0.8); EOS# 0.24 X1000 (0.0-0.7); EOS% 2.6 % (0.0-10.0); HEMATOCRIT 34.1 % (37.0-47.0); HEMOGLOBIN 10.9 g/dL (12.0-16.0); IMM GRAN# 0.04 X1000 (0.0-0.04); IMM GRAN% 0.4 % (0.0-0.5); LYMPH# 2.18 X1000 (1.2-3.4); LYMPH% 23.5 % (20.5-51.1); MCH 28.4 PG (27-31); MCV 88.8 FL (81-99); MONO# 0.55 X1000 (0.11-0.59); MONO% 5.9 % (1.7-9.3); NEUT# 6.24 X1000 (1.4-6.5); NEUT% 67.4 % (42.2-75.2); PLT 307 X1000 (130-400); RBC 3.84 XMIL (4.2-5.4); RDW 13.4 % (11.5-14.5); WBC 9.27 X1000 (4.8-10.8)
[2019-01-28] MEDS: NS 1,000 ML IV SCH ×2 (06:00→20:41)
[2019-01-28] MEDS: HUMULIN R SUBQ SCH ×4 (06:01→20:43)
[2019-01-28 06:23] LABS: AGAP 13; ALB/GLOB RATIO 0.8; ALBUMIN 2.5 g/dL (3.5-5.0); ALKALINE PHOSPHATASE 76 U/L (32-104); BUN 10 mg/dL (8-22); CALCIUM 8.4 mg/dL (8.8-10.2); CHLORIDE 105 mmol/L (98-107); COSMO 274; CREATININE 0.7 mg/dL (0.5-0.9); ESTIMATED GFR > 60; GLUCOSE 192 mg/dL (70-104); GOT 6 U/L (10-30); GPT 6 U/L (10-36); POTASSIUM 4.6 mmol/L (3.5-5.1); SODIUM 135 mmol/L (136-145); TCO2 17 mmol/L (25-35); TOTAL BILIRUBIN 0.15 mg/dL (0.20-1.00); TOTAL PROTEIN 5.5 g/dL (6.3-8.3)
[2019-01-28 06:33] LABS: INR 1.11; PROTIME 14.5 Seconds (11.0-16.0)
[2019-01-28] MEDS: PRILOSEC PO SCH (08:45)
[2019-01-28] MEDS: FOLIC ACID PO SCH (08:45)
[2019-01-28] MEDS: DETROL LA PO SCH (08:45)
[2019-01-28] MEDS: PRINIVIL PO SCH (08:46)
[2019-01-28] MEDS: MYCOSTATIN POWDER TOP SCH ×2 (08:47→20:41)
[2019-01-28] MEDS: DIFLUCAN PO SCH (08:47)
--- NOTE | 2019-01-28 13:37 | PROGRESS NOTE ---
DATE: 01/28/2019 Ms. Lan is feeling better. Her rash is improved. It is dried out. Blood sugars have come down. Temp 97.1 degrees, pulse 64, respirations 17, blood pressure 142/67. Pupils are equal and round. Lungs are clear in all lung rodarte. Cardiovascular regular rhythm and rate without murmur or S3. Abdomen is soft. Skin is warm and dry. ASSESSMENT AND PLAN: 1. Hyperglycemic hyperosmolar syndrome, blood sugar has come down nicely. 2. 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 Continue Diflucan and topical nystatin. 3. History of peripheral vascular disease. 4. Morbid obesity. 5. She is on Coumadin. We have held the Coumadin, but probably we will reinitiate that. 6. Status post amputation, left lower lobe. Continue current treatment. cc: Oseas Lamar MD
[2019-01-28] MEDS ORDERED: HALL'S COUGH LOZENGE MT PRN (15:06)
[2019-01-28] MEDS: TESSALON PO PRN ×2 (15:16→20:42)
[2019-01-28] MEDS: NICODERM PATCH TD SCH (15:16)
[2019-01-28] MEDS: LEVAQUIN 750 MG/D5W 750 MG/150 ML IVPB IV SCH (17:08)
[2019-01-28] MEDS: LIPITOR PO SCH (20:42)
[2019-01-29] MEDS: NORCO-10 PO PRN ×5 (01:12→20:47)
[2019-01-29] MEDS: HUMULIN R SUBQ SCH ×5 (05:54→20:50)
[2019-01-29 06:22] LABS: BASO# 0.02 X1000 (0.0-0.2); BASO% 0.2 % (0.0-0.8); EOS# 0.22 X1000 (0.0-0.7); EOS% 2.6 % (0.0-10.0); HEMATOCRIT 34.1 % (37.0-47.0); HEMOGLOBIN 11.1 g/dL (12.0-16.0); IMM GRAN# 0.04 X1000 (0.0-0.04); IMM GRAN% 0.5 % (0.0-0.5); LYMPH# 2.03 X1000 (1.2-3.4); LYMPH% 23.6 % (20.5-51.1); MCH 29.1 PG (27-31); MCHC 32.6 g/dL (33-37); MCV 89.5 FL (81-99); MONO# 0.54 X1000 (0.11-0.59); MONO% 6.3 % (1.7-9.3); MPV 10.3 FL (7.4-10.4); NEUT# 5.74 X1000 (1.4-6.5); NEUT% 66.8 % (42.2-75.2); PLT 281 X1000 (130-400); RBC 3.81 XMIL (4.2-5.4); RDW 13.5 % (11.5-14.5); WBC 8.59 X1000 (4.8-10.8)
[2019-01-29 06:43] LABS: INR 1.12; PROTIME 14.6 Seconds (11.0-16.0)
[2019-01-29 06:48] LABS: AGAP 12; ALB/GLOB RATIO 0.9; ALBUMIN 2.7 g/dL (3.5-5.0); ALKALINE PHOSPHATASE 80 U/L (32-104); BUN 8 mg/dL (8-22); CHLORIDE 107 mmol/L (98-107); COSMO 278; CREATININE 0.7 mg/dL (0.5-0.9); ESTIMATED GFR > 60; GLUCOSE 179 mg/dL (70-104); GOT 8 U/L (10-30); GPT 7 U/L (10-36); POTASSIUM 4.5 mmol/L (3.5-5.1); SODIUM 138 mmol/L (136-145); TCO2 19 mmol/L (25-35); TOTAL BILIRUBIN 0.18 mg/dL (0.20-1.00); TOTAL PROTEIN 5.8 g/dL (6.3-8.3)
[2019-01-29] MEDS: NS 1,000 ML IV SCH ×2 (07:42→20:38)
[2019-01-29] MEDS: TESSALON PO PRN ×2 (08:19→15:13)
[2019-01-29] MEDS: NICODERM PATCH TD SCH (08:19)
[2019-01-29] MEDS: PRINIVIL PO SCH (08:19)
[2019-01-29] MEDS: PRILOSEC PO SCH (08:19)
[2019-01-29] MEDS: DIFLUCAN PO SCH (08:19)
[2019-01-29] MEDS: DETROL LA PO SCH (08:19)
[2019-01-29] MEDS: FOLIC ACID PO SCH (08:19)
[2019-01-29] MEDS: MYCOSTATIN POWDER TOP SCH ×2 (08:20→20:39)
--- NOTE | 2019-01-29 09:28 | PROGRESS NOTE ---
DATE: 01/29/2019 SUBJECTIVE: Ms. Lan is feeling much better and she feels stronger. The rash is almost completely resolved in her perineal area. She is breathing comfortably. Blood sugars have come down nicely. She remains afebrile. OBJECTIVE: She is afebrile, temperature 97.6 degrees, pulse 54, respirations 16, blood pressure 133/40. Pupils are equal and round. Lungs are clear in all lung rodarte. Cardiovascular Examination: Regular rhythm and rate without murmur or S3. Abdomen is soft. Skin is warm and dry. ASSESSMENT AND PLAN: 1. Hyperglycemic, hyperosmolar syndrome. Sugars have come down nicely. No sign of acidosis. 2. 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 That has improved with topical nystatin and oral Diflucan. 3. Peripheral vascular disease. Aware. 4. Morbid obesity. 5. She is on Coumadin, which we held but we will reinitiate. 6. She is status post amputation of the left lower limb, above the knee amputation. REVIEW OF ORDERS: Looking back at her orders, she is on Lipitor 80 mg a day, Tessalon Perles 100 mg p.o. q.4 hours p.r.n., Diflucan 150 mg a day, folic acid 1 mg a day, Levaquin 750 mg IV q.24 hours, Prinivil 2.5 mg daily, nicotine patch 21 mg a day. She takes tolterodine long-acting 2 mg daily, Prilosec 40 mg a day, nystatin powder. She is getting normal saline at 85 mL an hour. She would like to try and go home tomorrow. I think that is very reasonable. LABORATORY DATA: Blood counts today, white count 8590, hematocrit is 34, platelet count 281,000. Chemistry: Sodium 138, potassium 4.5, chloride 107, BUN 8, creatinine 0.7. We will try and set up home health. Blood sugars have been 205, 206, 179, 163. cc: Oseas Lamar MD
[2019-01-29 12:30] LABS: CALCIUM 9.5 mg/dL (8.8-10.2)
[2019-01-29] MEDS: LEVAQUIN 750 MG/D5W 750 MG/150 ML IVPB IV SCH (16:54)
[2019-01-29] MEDS: LIPITOR PO SCH (20:38)
[2019-01-30] MEDS: NORCO-10 PO PRN ×2 (03:52→09:10)
[2019-01-30 06:13] LABS: BASO# 0.02 X1000 (0.0-0.2); BASO% 0.2 % (0.0-0.8); EOS# 0.17 X1000 (0.0-0.7); EOS% 1.8 % (0.0-10.0); HEMATOCRIT 34.7 % (37.0-47.0); HEMOGLOBIN 11.1 g/dL (12.0-16.0); IMM GRAN# 0.03 X1000 (0.0-0.04); IMM GRAN% 0.3 % (0.0-0.5); LYMPH# 1.98 X1000 (1.2-3.4); LYMPH% 21.2 % (20.5-51.1); MCH 28.6 PG (27-31); MCV 89.4 FL (81-99); MONO# 0.59 X1000 (0.11-0.59); MONO% 6.3 % (1.7-9.3); MPV 10.3 FL (7.4-10.4); NEUT# 6.55 X1000 (1.4-6.5); NEUT% 70.2 % (42.2-75.2); PLT 273 X1000 (130-400); RBC 3.88 XMIL (4.2-5.4); RDW 13.3 % (11.5-14.5); WBC 9.34 X1000 (4.8-10.8)
[2019-01-30 06:22] LABS: INR 1.13; PROTIME 14.7 Seconds (11.0-16.0)
[2019-01-30] MEDS: NS 1,000 ML IV SCH (06:38)
[2019-01-30] MEDS: HUMULIN R SUBQ SCH ×2 (06:38→12:24)
[2019-01-30 07:03] LABS: AGAP 14; ALB/GLOB RATIO 0.8; ALBUMIN 2.5 g/dL (3.5-5.0); ALKALINE PHOSPHATASE 78 U/L (32-104); BUN 8 mg/dL (8-22); CALCIUM 8.3 mg/dL (8.8-10.2); CHLORIDE 104 mmol/L (98-107); COSMO 279; CREATININE 0.7 mg/dL (0.5-0.9); ESTIMATED GFR > 60; GLUCOSE 216 mg/dL (70-104); GOT 6 U/L (10-30); GPT 8 U/L (10-36); POTASSIUM 4.3 mmol/L (3.5-5.1); SODIUM 137 mmol/L (136-145); TCO2 19 mmol/L (25-35); TOTAL BILIRUBIN 0.19 mg/dL (0.20-1.00); TOTAL PROTEIN 5.6 g/dL (6.3-8.3)
[2019-01-30] MEDS: NICODERM PATCH TD SCH (08:53)
[2019-01-30] MEDS: FOLIC ACID PO SCH (08:53)
[2019-01-30] MEDS: PRILOSEC PO SCH (08:53)
[2019-01-30] MEDS: DETROL LA PO SCH (08:53)
[2019-01-30] MEDS: PRINIVIL PO SCH (08:53)
[2019-01-30] MEDS: DIFLUCAN PO SCH (08:53)
[2019-01-30] MEDS: MYCOSTATIN POWDER TOP SCH (08:56)
--- NOTE | 2019-01-30 10:40 | DISCHARGE SUMMARY ---
ADMISSION DATE: 01/25/2019 DISCHARGE DATE: 01/30/2019 HISTORY OF PRESENT ILLNESS: This is a 68-year-old who showed up in the emergency room. Apparently, a friend bought her from [facility]. She lives with a friend. She really had been confined to the bed for what sounds like a couple weeks, has not been checking her sugars, just really has felt bad. She had a large area of fungal dermatosis in the lower perennial area underneath her abdominal folds. Her blood sugar was 800, and she was very lethargic and confused. PAST MEDICAL HISTORY: She has had a left [id number] amputation, long history of diabetes mellitus type 2, hypertension. HOSPITAL COURSE: She was admitted and put on IV insulin. Brought the sugar down well. We put her on some nystatin topically and p.o. Levaquin, and the perennial fungal dermatosis really resolved pretty quickly. Her blood sugar is under control. She wanted to go home. We started physical therapy, which she tolerated, and will try and get home health set up for her. DISCHARGE MEDICATIONS: Lipitor 80 mg a day, Tessalon Perles 100 mg every 4 hours, her Diflucan she can stop (she was taking 150 mg daily), folic acid 1 mg daily (will continue), Prinivil 2.5 mg daily, and then I gave her a nicotine patch if she would like to continue to use those. She is also on Detrol LA 2 mg daily. DISCHARGE INSTRUCTIONS: Follow up with her primary care. Encouraged her to check sugars. Continued to encourage her to follow a 1600-calorie diabetic diet, and pursue weight reduction. cc: Oseas Lamar MD
--- NOTE | 2019-01-30 10:49 | DISCHARGE SUMMARY ---
ADMISSION DATE: 01/25/2019 DISCHARGE DATE: ADDENDUM: I am going to put her on metformin 500 mg twice a day before breakfast and supper, and glipizide 5 mg before breakfast and supper as her sugar is still running in the 200s. Encouraged her to get her followup and check her blood sugars at home. cc: Oseas Lamar MD
[2019-01-30 11:22] VITALS: BP 151/79
== END 2019-01-30 12:56 | disposition home health service (06) | DRG 639 ==
LOC: ED 16:04 → 2N 20:49 → 4N 01-30 05:58
PROVIDERS: ATTEND Emergency Medicine